=== PATIENT | female | born 1935 | race Caucasian/White ===

== ENCOUNTER 2022-01-19 11:00 | Inpatient (IN) | payer OTHER ==
[~2022-01-19] VITALS: Ht 160 cm; Wt 64.9 kg
[2022-01-19 11:00] VITALS: BP_SYST 166
--- NOTE | 2022-01-19 11:00 | NUR ---
Patient to ER bed 5 to gown for evaluation. Side rails up. Report given to YA JAIME.
--- NOTE | 2022-01-19 11:08 | NUR ---
PT RETURNING FROM CT SCAN DEPT.
--- NOTE | 2022-01-19 11:10 | NUR ---
SET UP TELEMEDICINE. Minnie JENNINGS AT BEDSIDE EXAMINING PT.
--- NOTE | 2022-01-19 11:27 | NUR ---
FINGERSTICK BLOOD SUGAR 144 MG/DL.
--- NOTE | 2022-01-19 11:35 | NUR ---
TELE[employer] VIDEO CONFERENCE WITH PATIENT WAS HELD.
--- NOTE | 2022-01-19 11:38 | NUR ---
EKG COMPLETED, REPORT HANDED TO DR JENNINGS.
--- NOTE | 2022-01-19 11:52 | NUR ---
BLOOD SAMPLE DRAWN BY PRACTICE PROFESSIONAL
[2022-01-19 12:08] LABS: BASOPHILS % (AUTO) 0.7 % (0.0-2.0); EOSINOPHILS # (AUTO) 0.1 K/uL (0.0-0.4); EOSINOPHILS % (AUTO) 1.8 % (0.0-4.0); HEMATOCRIT 37.3 % (36-48); HEMOGLOBIN 12.5 g/dL (12.0-16.0); LYMPHOCYTES # (AUTO) 0.8 K/uL (1.0-5.5); MEAN CORPUSCULAR HEMOGLOBIN 31 pg (27-31); MEAN CORPUSCULAR HGB CONC 34 % (32-36); MEAN CORPUSCULAR VOLUME 92 fL (79.0-98.0); MONOCYTES # (AUTO) 0.6 K/uL (0.0-1.0); MONOCYTES % (AUTO) 12.7 % (1.7-9.3); NEUTROPHILS # (AUTO) 3.2 K/uL (1.8-7.7); NEUTROPHILS % (AUTO) 67.8 % (40.0-70.0); PLATELET COUNT (AUTO) 185 K/uL (130-430); RED BLOOD CELL COUNT(AUTO) 4.05 MIL/uL (4.2-6.2); RED CELL DISTRIBUTION WIDTH 12.9 % (9.0-15.0); WHITE BLOOD COUNT (AUTO) 4.7 K/uL (4.8-10.8)
[2022-01-19 12:26] LABS: PROTHROMBIN TIME 10.2 SECS (9.5-12.5)
[2022-01-19 12:43] LABS: ANION GAP 9 (5-15); CALCIUM 9.9 mg/dL (8.4-11.0); CHLORIDE 99 mmol/L (98-107); CREATININE 0.91 mg/dL (0.55-1.30); GLUCOSE 127 mg/dL (70-99); POTASSIUM 3.8 mmol/L (3.5-5.1); SODIUM SERUM 135 mmol/L (136-145); UREA NITROGEN, BLOOD 10 mg/dL (8-21)
[2022-01-19 13:15] LABS: ALANINE AMINOTRANSFERASE 23 U/L (12-78); ASPARTATE AMINOTRANSFERASE 22 U/L (10-37); TOTAL BILIRUBIN 0.5 mg/dL (0.0-1.0)
[2022-01-19 13:16] LABS: ALBUMIN 3.8 g/dL (3.4-4.8)
--- NOTE | 2022-01-19 14:00 | NUR ---
Admit bed requested Patient will be admitted to care of . Admitted to TELEMETRY unit. Diagnosis CVA Inpatient (Yes or No) YES Observation (Yes or No) NO Orientation concerns or request close to nursing station (Yes or No) YES Covid Status On vent or bipap NO Isolation requirements NO Needs a sitter YES From Home (Yes or if No enter name of facility) HOME Requires Dialysis (Yes or No) NO Med Rec Completed (Yes of No)
[2022-01-19] MEDS ORDERED: AMIO100T4 PO (15:35)
[2022-01-19] MEDS ORDERED: BUME1TAB8 PO (15:35)
[2022-01-19] MEDS ORDERED: METO-540 (15:35)
[2022-01-19] MEDS ORDERED: POTA-197 PO (15:35)
[2022-01-19] MEDS ORDERED: APIX5TAB4 PO (15:35)
[2022-01-19] MEDS ORDERED: ASPIRIN 325 MG TABLET (ECOTRIN) PO ONE (16:00)
--- NOTE | 2022-01-19 17:11 | NUR ---
PT HAS URGENCY TO URINATE, VOIDED ADEQUATE AMOUNT TO A BEDPAN, SAMPLE TAKEN AND SENT TO LAB FOR TEST.
[2022-01-19 17:49] LABS: BILIRUBIN,URINE NEGATIVE (NEGATIVE); BLOOD, URINE NEGATIVE (NEGATIVE); CLARITY/URINE CLEAR (CLEAR); COLOR,URINE YELLOW (YELLOW); GLUCOSE,URINE NEGATIVE (NEGATIVE); KETONES,URINE TRACE (NEGATIVE); LEUKOCYTE ESTERASE ,URINE NEGATIVE (NEGATIVE); NITRITE, URINE NEGATIVE (NEGATIVE); PROTEIN URINE NEGATIVE (NEGATIVE); UROBILINOGEN,URINE 0.2 (0.2-1.0)
[2022-01-19 18:01] LABS: BARBITURATE, URINE NEGATIVE (NEG <=200); BENZODIAZEPINE, URINE NEGATIVE (NEG <=150); CANNABINOID, URINE NEGATIVE (NEG <=50); COCAINE, URINE NEGATIVE (NEG <=150); METHAMPHETAMINES SCREEN,URINE NEGATIVE (NEG <=500); OPIATE, URINE NEGATIVE (NEG <=100); PHENCYCLIDINE SCREEN,URINE NEGATIVE (NEG <=25); UR TRICYCLIC ANTIDEPRESSANTS NEGATIVE (NEG <=300); URINE AMPHETAMINE NEGATIVE (NEG <=500); URINE METHADONE NEGATIVE (NEG <=200); URINE OXYCODONE SCREEN NEGATIVE (NEG <=100); URINE PROPOXYPHENE SCREEN NEGATIVE (NEG <=300)
--- NOTE | 2022-01-19 18:30 | NUR ---
TRANSPORTED TO TELEMETRY DEPT, ROOM 112-B, REPORT GIVEN TO ADDISON BREWSTER.
--- NOTE | 2022-01-19 18:55 | NUR ---
ADMISSION NOTE Received patient from ER via [facility]. Patient admitted with diagnosis of CVA. Patient is awake, alert, oriented X 4. Patient oriented to hospital room, call light, toileting, pain management and safety-teach back done. Patient informed that I will be her nurse and that their room number is 112B. Call light within reach. Will endorse to rn night.
[2022-01-19 20:00] VITALS: BP_SYST 174
--- NOTE | 2022-01-19 20:00 | NUR ---
PM ASSESSMENT; -Pt is a/ox4,laying in bed comfortably. Pt denies any chest pain,sob,headache, or any acute distress. IV site of RAC patent,flushed well, no s/s any infiltration noted. Discussed poc,all safety, or if experiencing any acute distress, or needs to use bathroom to use call light for assistance, pt verbalized understanding. Pt is high fall risk bc pt fell yesterday. Fall risk precaution in place. All safety measures in place. Side rails x3, Call light w/in reach. bed alarm in place. Continuing to monitor pt. Addendum: 01/20/22 at 0640 by [employer] sales professional LATE ENTRY-ADDITIONAL NOTES OF ASSESSMENT -slightly facial drooping of left side.
--- NOTE | 2022-01-19 20:00 | NUR ---
2020 -pt denies any headache, chest pain,sob,or any acute distress. Elevated BP after 15 mins retook DE=019/65,69. Pt's condition stable. continuing to monitor pt.
[2022-01-19 20:20] VITALS: BP_SYST 177
--- NOTE | 2022-01-19 20:22 | NUR ---
NOTES: ELEVATED BP -notified Dr. Damon regarding elevated BP 174/71, and retook 15 mins later 177/65 and a monitor is SR with HR [address] elevation and informed md that patient has home meds including BP medications admitted to telemetry unit with dx CVA. stated," Call me only when BP is above SBP 210." Charge nurse Jose Antonio noted.
[2022-01-19 20:59] VITALS: BP_SYST 174
[2022-01-19 21:42] VITALS: BP_SYST 174
--- NOTE | 2022-01-19 22:10 | NUR ---
ROUNDS; -Pt is resting in bed comfortably. Pt denies any chest pain,sob,headache, or any acute distress. All safety measures in place. Call light w/in reach. bed alarm in place. Continuing to monitor pt.
--- NOTE | 2022-01-19 23:00 | NUR ---
NOTES-PHOTOS TAKEN OF SKIN TEARS AND ECCHYMOSIS S/P FALL AT HOME ON 01/18/22 -pt permitted to take photos of her body of skin tears and ecchymosis. see photo wound documentation for details.
[2022-01-20 00:15] VITALS: BP_SYST 154
--- NOTE | 2022-01-20 02:09 | NUR ---
ROUNDS; -Pt is laying in bed. No s/s any acute distress noted. All safety measures in place. Call light w/in reach. bed alarm in place. Continuing to monitor pt.
[2022-01-20] MEDS ORDERED: METO25TA3 PO (02:34)
[2022-01-20] MEDS ORDERED: APIX5TAB PO (02:34)
[2022-01-20] MEDS ORDERED: AMIO100T4 PO (02:34)
[2022-01-20] MEDS ORDERED: [UNRECOGNIZED DRUG - CODE] PO (02:34)
[2022-01-20] MEDS ORDERED: BUME1TAB8 PO (02:34)
[2022-01-20] MEDS ORDERED: CLOP75TA32 PO (02:34)
--- NOTE | 2022-01-20 02:42 | NUR ---
CONSULTATION PAGED REASON FOR CONSULTATION: CVA WAS CONSULT CALLED? Y PERSON WHO WAS NOTIFIED: Sol CONSULTING PHYSICIAN: Dr. Espinoza REQUESTING PHYSICIAN:Dr. Matos
--- NOTE | 2022-01-20 04:12 | NUR ---
ROUNDS; -Pt is asleep. No s/s any acute distress noted. All safety measures in place. Call light w/in reach. bed alarm in place. Continuing to monitor pt.
--- NOTE | 2022-01-20 04:59 | NUR ---
CONSULTATION PAGED REASON FOR CONSULTATION: CVA WAS CONSULT CALLED? Y PERSON WHO WAS NOTIFIED: Dr. Arevalo text message CONSULTING PHYSICIAN: Jhony Medina REQUESTING PHYSICIAN:Dr. Matos
--- NOTE | 2022-01-20 06:28 | NUR ---
CLOSING NOTES; -Pt is asleep. No s/s any acute distress noted. IV site of RAC patent drsg cdi. Pt's condition remains stable entire shift. Fall precaution in place. All safety measures in place. Call light w/in reach. bed alarm in place. Will endorse to next nurse to cont care.
--- NOTE | 2022-01-20 07:14 | NUR ---
RECEIVED REPORT FROM ENDORSING SENIOR SOFTWARE ENGINEERING MANAGER RN FOR CONTINUITY OF CARE, PATIENT LYING ON BED AWAKE, NO SIGNS OF ACUTE DISTRESS NOTED AT THIS TIME, BED LOCKED AT LOWEST POSITION, FALL AND SAFETY PRECAUTION IN PLACE, WILL CONTINUE TO MONITOR, PATIENT TEMPERATURE 97.5, HEART RATE 71,OXYGEN SATURATION 98,BLOOD PRESSURE 155/77.
[2022-01-20 08:00] VITALS: BP_SYST 155
[2022-01-20] MEDS: ASPIRIN 325 MG TABLET (ECOTRIN) PO SCH (08:58)
[2022-01-20] MEDS: POTASSIUM CHLORIDE 20 MEQ TAB.PRT.SR PO SCH (08:58)
[2022-01-20] MEDS ORDERED: LORazepam 2 MG/ML VIAL IVP PRN (11:15)
[2022-01-20] MEDS ORDERED: ACETAMINOPHEN 325 MG TABLET PO PRN (11:15)
[2022-01-20] MEDS ORDERED: NALOXONE HCL 0.4 MG/ML AMP (NARCAN) IVP PRN ×2 (11:15)
[2022-01-20] MEDS ORDERED: ONDANSETRON HCL 4 MG/2 ML VIAL IVP PRN (11:15)
[2022-01-20] MEDS ORDERED: HYDROcodone/ACETAMIN 5-325 MG TAB (NORCO/ VICODIN) PO PRN (11:15)
--- NOTE | 2022-01-20 12:36 | NUR ---
Dietitian Recommendations * Consider D/C PO diet and consult ST for swallow eval per stroke protocol LP, RD Please refer to Nutrition Assessment for details. Addendum: 01/20/22 at [address] Amended: Links added.
[2022-01-20 13:18] VITALS: BP_SYST 168
[2022-01-20] MEDS: NORMAL SALINE 5 ML DISP.SYRIN IVF SCH ×4 (14:00→21:43)
[2022-01-20 16:41] VITALS: BP_SYST 142
[2022-01-20 20:00] VITALS: BP_SYST 138
[2022-01-20] MEDS: METOPROLOL SUCCINATE 25 MG TAB.SR.24H (TOPROL XL) PO SCH (21:44)
[2022-01-20] MEDS: HYDROcodone/ACETAMIN 10-325 MG TAB PO PRN (21:45)
[2022-01-20] MEDS: APIXABAN 2.5 MG TABLET PO SCH (21:49)
[2022-01-21 00:30] VITALS: BP_SYST 139
[2022-01-21] MEDS: HYDROcodone/ACETAMIN 10-325 MG TAB PO PRN (02:09)
[2022-01-21] MEDS: NORMAL SALINE 5 ML DISP.SYRIN IVF SCH ×4 (06:42→22:12)
[2022-01-21 06:52] LABS: EOSINOPHILS # (AUTO) 0.2 K/uL (0.0-0.4); EOSINOPHILS % (AUTO) 3.3 % (0.0-4.0); HEMATOCRIT 34.9 % (36-48); LYMPHOCYTES # (AUTO) 1.2 K/uL (1.0-5.5); LYMPHOCYTES % (AUTO) 26.4 % (20.5-51.5); MEAN CORPUSCULAR HEMOGLOBIN 32 pg (27-31); MEAN CORPUSCULAR HGB CONC 34 % (32-36); MEAN CORPUSCULAR VOLUME 92 fL (79.0-98.0); MONOCYTES # (AUTO) 0.8 K/uL (0.0-1.0); NEUTROPHILS # (AUTO) 2.4 K/uL (1.8-7.7); NEUTROPHILS % (AUTO) 52.3 % (40.0-70.0); PLATELET COUNT (AUTO) 183 K/uL (130-430); RED CELL DISTRIBUTION WIDTH 12.7 % (9.0-15.0); WHITE BLOOD COUNT (AUTO) 4.6 K/uL (4.8-10.8)
[2022-01-21 07:44] LABS: ANION GAP 6 (5-15); CALCIUM 8.9 mg/dL (8.4-11.0); CHLORIDE 101 mmol/L (98-107); GLUCOSE 100 mg/dL (70-99); PHOSPHORUS 3.1 mg/dL (2.7-4.5); POTASSIUM 3.9 mmol/L (3.5-5.1); SODIUM SERUM 133 mmol/L (136-145); UREA NITROGEN, BLOOD 12 mg/dL (8-21)
--- NOTE | 2022-01-21 08:00 | NUR ---
AM NOTES UP AND SITTING AT THE EDGE OF THE EDGE OF THE BED, ASSISTED TO THE COMMODE, HX OF FALL, PROVIDED A SAFE ENVIRONMENT TO PATIENT.
[2022-01-21 09:18] VITALS: BP_SYST 164
[2022-01-21] MEDS: AMIODARONE HCL 200 MG TABLET PO SCH (09:20)
[2022-01-21] MEDS: BUMETANIDE 1 MG TABLET PO SCH (09:21)
[2022-01-21] MEDS: ASPIRIN 325 MG TABLET (ECOTRIN) PO SCH (09:22)
[2022-01-21] MEDS: APIXABAN 2.5 MG TABLET PO SCH ×2 (09:23→21:21)
[2022-01-21] MEDS: POTASSIUM CHLORIDE 20 MEQ TAB.PRT.SR PO SCH (09:24)
[2022-01-21] MEDS: METOPROLOL SUCCINATE 25 MG TAB.SR.24H (TOPROL XL) PO SCH ×2 (09:24→21:20)
[2022-01-21] MEDS: CLOPIDOGREL BISULFATE 75 MG TABLET PO SCH (09:24)
--- NOTE | 2022-01-21 11:00 | NUR ---
CT SCAN EDSON TO CT SCAN FOR CT OF NECK VIA W/C.
[2022-01-21 12:56] VITALS: BP_SYST 150
--- NOTE | 2022-01-21 13:00 | NUR ---
SEEN BY FAMILY MEMBER DAUGHTER CAME TO SEE THE PATIENT, SEEN BY DR LENZ AND DR ALVARADO, FOR MRI/MRA OF BRAIN.
[2022-01-21 16:21] VITALS: BP_SYST 152
--- NOTE | 2022-01-21 18:10 | NUR ---
notes for mri/mra head tommorow with consent signed. took dinner, lying in bed.
[2022-01-21 20:00] VITALS: BP_SYST 133
--- NOTE | 2022-01-21 20:00 | NUR ---
OPENING NOTE PATIENT WAS RESTING IN BED LISTENING TO TAPE PLAYER. BED WAS AT LOWEST SETTING AND CALL LIGHT WAS WITHIN REACH. TEACHING WAS DONE WITH PATIENT TO CALL STAFF WHENEVER SHE HAS TO USE THE RESTROOM FOR FALL PREVENTION. PATIENT EXPRESSED UNDERSTANDING. WALKER IS AT BED SIDE.
[2022-01-21] MEDS ORDERED: ATORVASTATIN 20 MG TABLET PO SCH (21:00)
[2022-01-22 00:59] VITALS: BP_SYST 121
[2022-01-22] MEDS: NORMAL SALINE 5 ML DISP.SYRIN IVF SCH ×2 (06:16→14:00)
[2022-01-22 06:47] LABS: EOSINOPHILS # (AUTO) 0.2 K/uL (0.0-0.4); EOSINOPHILS % (AUTO) 3.5 % (0.0-4.0); HEMATOCRIT 34.8 % (36-48); LYMPHOCYTES # (AUTO) 1.3 K/uL (1.0-5.5); LYMPHOCYTES % (AUTO) 26.3 % (20.5-51.5); MEAN CORPUSCULAR HEMOGLOBIN 32 pg (27-31); MEAN CORPUSCULAR HGB CONC 35 % (32-36); MEAN CORPUSCULAR VOLUME 92 fL (79.0-98.0); MONOCYTES # (AUTO) 0.8 K/uL (0.0-1.0); MONOCYTES % (AUTO) 16.7 % (1.7-9.3); NEUTROPHILS # (AUTO) 2.6 K/uL (1.8-7.7); NEUTROPHILS % (AUTO) 52.5 % (40.0-70.0); PLATELET COUNT (AUTO) 205 K/uL (130-430); RED BLOOD CELL COUNT(AUTO) 3.79 MIL/uL (4.2-6.2); RED CELL DISTRIBUTION WIDTH 13.1 % (9.0-15.0); WHITE BLOOD COUNT (AUTO) 4.9 K/uL (4.8-10.8)
[2022-01-22 06:58] LABS: ALBUMIN 3.2 g/dL (3.4-4.8); GLUCOSE 98 mg/dL (70-99); POTASSIUM 3.9 mmol/L (3.5-5.1); SODIUM SERUM 135 mmol/L (136-145)
--- NOTE | 2022-01-22 07:02 | NUR ---
CLOSING NOTE PATIENT TOLERATED ALL MEDICATION AND CARE. CALL LIGHT WAS USED TO INFORM STAFF WHEN SHE HAD TO WALK TO THE RESTROOM TO PREVENT FALLS. CALL LIGHT IS WITHIN REACH AND BED IS AT LOWEST SETTING. UNABLE TO DO NIH ASSESSMENT DUE TO PATIENT SLEEPING. POSSIBLY CHANGE TIME OF ASSESSMENT SO IT IS NOT AT 0400.
--- NOTE | 2022-01-22 08:00 | NUR ---
RECEIVED PATIENT LAYING IN BED ALERT AND ORIENTED, PATIENT VITALS STABLE, PATIENT AWAITING MRI RESULTS IN REGARDS TO SYMPTOMS OF FACIAL DROOPING AND WEAKNESS, NO DIFFICULTY, NO PAIN, PATIENT CALL LIGHT WITHIN REACH, PERSONAL BELONGINGS WITHIN REACH.
[2022-01-22 08:44] LABS: ALANINE AMINOTRANSFERASE 24 U/L (12-78); ANION GAP 10 (5-15); ASPARTATE AMINOTRANSFERASE 17 U/L (10-37); CHLORIDE 99 mmol/L (98-107); CHOLESTEROL 151 mg/dL (<200); CREATININE 1.14 mg/dL (0.55-1.30); HDL CHOLESTEROL 72 mg/dL (>55); LDL CHOLESTEROL 64 mg/dL (<100); TOTAL BILIRUBIN 0.9 mg/dL (0.0-1.0); TRIGLYCERIDES 63 mg/dL (30-150); UREA NITROGEN, BLOOD 25 mg/dL (8-21)
[2022-01-22] MEDS: POTASSIUM CHLORIDE 20 MEQ TAB.PRT.SR PO SCH (09:33)
[2022-01-22] MEDS: APIXABAN 2.5 MG TABLET PO SCH (09:35)
[2022-01-22] MEDS: METOPROLOL SUCCINATE 25 MG TAB.SR.24H (TOPROL XL) PO SCH (09:36)
[2022-01-22] MEDS: CLOPIDOGREL BISULFATE 75 MG TABLET PO SCH (09:36)
[2022-01-22] MEDS: ASPIRIN 325 MG TABLET (ECOTRIN) PO SCH (09:36)
[2022-01-22] MEDS: AMIODARONE HCL 200 MG TABLET PO SCH (09:37)
[2022-01-22] MEDS: BUMETANIDE 1 MG TABLET PO SCH (10:25)
--- NOTE | 2022-01-22 13:16 | NUR ---
PATIENT IS SAFE TO USE THE FWW DURING GAIT AND TRANSFERS. SHE AMBULATED X 200 FT. SUPERVISED WITH THE FWW. SHE DOES NOT NEED FURTHER PHYSICAL THERAPY AT THIS TIME. NURSING TO SUPERVISE WITH THE FWW.
--- NOTE | 2022-01-22 14:00 | NUR ---
MD SPOKE TO PATIENT MRI RESULTS SHOW SIGNS OF SMALL ISCHEMIC STROKE, MD INFORMED PATIENT SHE IS EXPECTED TO MAKE A FULL RECOVERY. PATIENT WITH PENDING DISCHARGE INSTRUCTIONS.
[2022-01-22 16:26] VITALS: BP_SYST 150
--- NOTE | 2022-01-22 17:00 | NUR ---
PATIENT DISCHARGED TO HOME, WITH HOME HEALTH CONSULT.
[2022-01-23] MEDS ORDERED: ASPI-859 PO (15:43)
[2022-01-23] MEDS ORDERED: ROSU20TA2 PO (15:43)
== END 2022-01-22 17:05 | disposition home health service (06) | DRG 65 ==
LOC: SED 11:00 → STU 13:48
PROVIDERS: ADMIT Internal Medicine Hospice and Palliative Medicine; ATTEND Internal Medicine Hospice and Palliative Medicine
DX: I63.89 Other cerebral infarction (principal); E87.1 Hypo-osmolality and hyponatremia; G81.94 Hemiplegia, unspecified affecting left nondominant side; I48.20 Chronic atrial fibrillation, unspecified; R73.9 Hyperglycemia, unspecified; Z20.822 Contact with and (suspected) exposure to COVID-19; I48.0 Paroxysmal atrial fibrillation; D72.819 Decreased white blood cell count, unspecified; I10 Essential (primary) hypertension; I25.10 Atherosclerotic heart disease of native coronary artery without angina pectoris; I65.23 Occlusion and stenosis of bilateral carotid arteries; Z85.3 Personal history of malignant neoplasm of breast; Z90.11 Acquired absence of right breast and nipple; Z92.21 Personal history of antineoplastic chemotherapy; Z95.2 Presence of prosthetic heart valve; Z95.5 Presence of coronary angioplasty implant and graft
CPT/HCPCS: 36415; 70450-TC; 70491-TC; 70544; 70551; 71045; 76376; 80048; 80053; 80061; 80307; 81003; 82962; 83735; 84100; 84484; 85025; 85610-TC; 85730-TC; 86886; 86900; 86901; 93306; 93880; 97116-GP; 97530-GP; 99285; G0378; Q9967